=== PATIENT | male | born 2000 | race American Indian/Alaskan Native ===

== ENCOUNTER 2021-01-17 21:18 | Emergency (ER) | payer SELFPAY ==
[2021-01-17 21:59] VITALS: BP 136/81
[2021-01-18] MEDS ORDERED: TETANUS,DIPH,PERTUSS(ACELL) VACCINE 0.5 ML SYRINGE IM ONE (00:33)
--- NOTE | 2021-01-18 00:34 | Emergency Department Report ---
ED General Adult HPI - General Chief complaint: Extremity Injury, Upper Stated complaint: CUT FINGER Time Seen by Provider: 01/17/21 23:38 Source: patient, family Mode of arrival: Ambulatory Limitations: No Limitations - History of Present Illness Initial comments: 20-year-old -[place] male patient presents with complaints of a cut to his left fourth digit today. Patient states he cut his finger around the edge of a tuna can. He is unsure of his last tetanus vaccination. He denies any bony pain, redness, swelling, numbness/tingling/weakness in his finger, or difficulty moving his finger. Patient states the pain is mild. -: Sudden Quality: aching Consistency: constant - Related Data Previous Rx's Medication Instructions Recorded Last Taken Type Mupirocin [Bactroban 2% OINT] 1 applic TP TID 7 Days #1 tube 01/18/21 Unknown Rx Allergies Allergy/AdvReac Type Severity Reaction Status Date / Time No Known Allergies Allergy Verified 01/17/21 21:55 ED Review of Systems ROS: Stated complaint: CUT FINGER Other details as noted in HPI Constitutional: denies: chills, fever Musculoskeletal: denies: joint swelling, arthralgia Skin: denies: change in color Neurological: denies: numbness, paresthesias Hematological/Lymphatic: denies: easy bleeding ED Past Medical Hx - Past Medical History Previous Medical History?: No - Surgical History Past Surgical History?: No - Social History Smoking Status: Never Smoker Substance Use Type: None - Medications Home Medications: Home Medications Medication Instructions Recorded Confirmed Last Taken Type Mupirocin [Bactroban 2% OINT] 1 applic TP TID 7 Days #1 tube 01/18/21 Unknown Rx ED Physical Exam - General Limitations: No Limitations General appearance: alert, in no apparent distress - Head Head exam: Present: atraumatic, normocephalic - Eye Eye exam: Present: normal appearance. Absent: scleral icterus - Respiratory Respiratory exam: Absent: respiratory distress - Cardiovascular Cardiovascular Exam: Present: regular rate - Neurological Exam Neurological exam: Present: alert, oriented X3 - Psychiatric Psychiatric exam: Present: normal affect, normal mood - Skin Skin exam: Present: warm, dry, normal color. Absent: intact (Small nonbleeding laceration noted to the tip of the left fourth digit without obvious foreign bodies, swelling, or redness), rash ED Course Vital Signs 01/17/21 21:56 Temperature 98.4 F Pulse Rate 69 Respiratory 18 Rate Blood Pressure 136/81 O2 Sat by Pulse 99 Oximetry ED Medical Decision Making - Medical Decision Making 20-year-old -[place] male patient presents with complaints of a cut to his left fourth digit today. Patient states he cut his finger around the edge of a tuna can. He is unsure of his last tetanus vaccination. He denies any bony pain, redness, swelling, numbness/tingling/weakness in his finger, or difficulty moving his finger. Patient states the pain is mild. Small laceration noted on exam, no sutures required. Wound was cleaned and sterile dressing applied. Mupirocin given for infection prophylaxis. Tetanus vaccine updated. Discussed wound care and signs symptoms that should prompt immediate return to the emergency department in detail patient verbalizes understanding peer Critical care attestation.: If time is entered above; I have spent that time in minutes in the direct care of this critically ill patient, excluding procedure time. ED Disposition Clinical Impression: Finger laceration Disposition: 01 HOME / SELF CARE / HOMELESS Is pt being admited?: No Condition: Stable Instructions: Nonsutured Laceration Care Prescriptions: Mupirocin [Bactroban 2% OINT] 1 applic TP TID 7 Days #1 tube Referrals: PRIMARY CARE, [Primary Care Provider] - 3-5 Days Forms: Work/School Release Form(ED)
== END 2021-01-18 01:18 | disposition home or self-care (01) ==
LOC: ED 21:18
DX: S61.211A Laceration without foreign body of left index finger without damage to nail, initial encounter (principal); W26.8XXA Contact with other sharp object(s), not elsewhere classified, initial encounter; Y93.89 Activity, other specified; Y92.89 Other specified places as the place of occurrence of the external cause; Y99.8 Other external cause status
CPT/HCPCS: 99282; 99283